=== PATIENT | male | born 1970 ===

== ENCOUNTER 2016-12-27 15:48 | Inpatient (IN) | payer BC, OTHER ==
[2016-12-27] MEDS ORDERED: Sodium Chloride 0.9% 1,000 ML IV STA (16:23)
--- NOTE | 2016-12-27 16:27 | ED PDOC ---
HPI: Abdomen Time Seen by Provider: 12/27/16 16:15 Chief Complaint (Nursing): Abdominal Pain Chief Complaint (Provider): Abd pain History Per: Patient History/Exam Limitations: no limitations Onset/Duration Of Symptoms: Days (2) Outside of [place] travel?: No Current Symptoms Are (Timing): Gone Now Additional Complaint(s): Pt. with epigastric and upper abd pain going to back. Ongoing for 2 days. No pain currently. Had same long time ago in [place] and was told it was liver and possible stones in gall bladder. No diarrhea, vomit, weakness, fever , chills, headches, dysuria. Has nasuea. Past Medical History Reviewed: Nursing Documentation, Vital Signs Vital Signs: Last Vital Signs Temp 97.7 F 12/27/16 15:58 Pulse 81 12/27/16 15:58 Resp 18 12/27/16 15:58 BP 118/70 12/27/16 15:58 Pulse Ox 100 12/27/16 16:28 - Medical History PMH: Gall Bladder Disease, HTN (?) - Surgical History Surgical History: No Surg Hx - Family History Family History: States: Unknown Family Hx - Living Arrangements Living Arrangements: With Family - Social History Alcohol: None Drugs: Denies - Allergies Allergies/Adverse Reactions: Allergies Allergy/AdvReac Type Severity Reaction Status Date / Time No Known Allergies Allergy Verified 12/27/16 15:57 Review of Systems ROS Statement: Except As Marked, All Systems Reviewed And Found Negative Gastrointestinal: Positive for: Nausea, Abdominal Pain Physical Exam - Reviewed Nursing Documentation Reviewed: Yes Vital Signs Reviewed: Yes - Physical Exam Appears: Positive for: Non-toxic, No Acute Distress Head Exam: Positive for: ATRAUMATIC, NORMAL INSPECTION, NORMOCEPHALIC Skin: Positive for: Normal Color, Warm, DRY Eye Exam: Positive for: EOMI, Normal appearance, PERRL ENT: Positive for: Normal ENT Inspection Neck: Positive for: Normal, Painless ROM Cardiovascular/Chest: Positive for: Regular Rate, Rhythm Respiratory: Positive for: CNT, Normal Breath Sounds Gastrointestinal/Abdominal: Positive for: Bowel Sounds, Soft. Negative for: Tenderness, Distended, Guarding Back: Positive for: Normal Inspection. Negative for: L CVA Tenderness, R CVA Tenderness Extremity: Positive for: Normal ROM. Negative for: Tenderness, Pedal Edema Neurologic/Psych: Positive for: Alert, Oriented - Laboratory Results Result Diagrams: 12/27/16 16:54 12/27/16 16:54 Interpretation Of Abn Labs: ast and alt elevation; tbili 1.8 - ECG O2 Sat by Pulse Oximetry: 100 Pulse Ox Interpretation: Normal - CT Scan/US US Other Rad Studies (CT/US): Read By Radiologist Other Rad Interpretation: gallstones; wall edema - Progress ED Course And Treament: 1744: Stable. AAOx3. Pain free. Spoke with hospitalist who will admit. Spoke with Surgery who will consult. GI paged. will start antibiotics. 1754: Spoke with Dr. Styles. Will see pt. on consult. No additional tx. Disposition - Clinical Impression Clinical Impression: Cholecystitis - Patient ED Disposition Is Patient to be Admitted: Yes Counseled Patient/Family Regarding: Studies Performed, Diagnosis - Disposition Disposition Time: 17:48 Condition: FAIR - Pt Status Changed To: Hospital Disposition Of: Inpatient - Admit Certification Admit to Inpatient:: After my assessment, the patient will require hospitalization for at least two midnights. This is because of the severity of symptoms shown, intensity of services needed, and/or the medical risk in this patient being treated as an outpatient. - POA Present On Arrival: None
[2016-12-27 16:57] LABS: BASO % 0.4 % (0.0-2.0); EOS # 0.2 K/uL (0.0-0.7); EOS % 2.2 % (0.0-4.0); MEAN CELL VOLUME 88.6 fl (80.0-94.0); MEAN CORPUSCULAR HEMOGLOBIN 29.6 pg (27.0-31.0); MEAN CORPUSCULAR HGB CONC 33.4 g/dL (33.0-37.0); MEAN PLATELET VOLUME 7.7 fl (7.2-11.7); MONO # 0.6 K/uL (0.0-0.8); MONO % 5.7 % (0.0-10.0); NEUT # 7.3 K/uL (1.8-7.0); NEUT % 71.7 % (50.0-75.0); NRBC % 0.1 % (0.0-0.0); RED CELL DISTRIBUTION WIDTH 13.4 % (11.5-14.5); WHITE BLOOD COUNT 10.2 K/uL (4.8-10.8)
[2016-12-27 17:09] LABS: ALB/GLOB RATIO 1.5 (1.0-2.1); ALKALINE PHOSPHATASE 147 U/L (38-126); ALT/SGPT 350 U/L (21-72); AST/SGOT 90 U/L (17-59); BILIRUBIN,TOTAL 1.8 mg/dl (0.2-1.3); BLOOD UREA NITROGEN 13 mg/dl (9-20); CALCIUM 9.3 mg/dL (8.4-10.2); CARBON DIOXIDE 26 mmol/L (22-30); CHLORIDE 102 mmol/L (98-107); GFR AFRICAN-AMERICAN > 60; GLUCOSE,RANDOM 94 mg/dL (75-110); LIPASE 76 U/L (23-300); POTASSIUM 3.9 MMOL/L (3.6-5.0); SODIUM 141 mmol/l (132-148); TOTAL PROTEIN 7.4 G/DL (6.3-8.2)
[2016-12-27 17:21] LABS: PARTIAL THROMBOPLASTIN TIME 37.6 Seconds (25.6-37.1)
--- NOTE | 2016-12-27 17:25 | US ---
HISTORY: abd pain COMPARISON: None available. TECHNIQUE: Sonographic evaluation of the right upper quadrant of the abdomen. FINDINGS: LIVER: Measures 15.3 cm in length and appears unremarkable. No focal hepatic mass identified. The main portal vein appears patent with normal directional flow. No intrahepatic bile duct dilatation. GALLBLADDER: Gallstones. Mild gallbladder wall thickening/ pericholecystic edema measuring approximately 4 mm in diameter. Negative sonographic Wallis's sign as assessed by the ground water technician. COMMON BILE DUCT: Measures 5 mm. PANCREAS: Not well-visualized. RIGHT KIDNEY: Measures 11.5 x 4.1 x 5.5 cm. No obstructing calculus or hydronephrosis identified. AORTA: Limited visualization appears grossly unremarkable. IVC: Limited visualization appears grossly unremarkable. OTHER FINDINGS: None . IMPRESSION: Cholelithiasis. Gallbladder wall thickening/edema measuring approximately 4 mm in diameter. Negative sonographic Wallis's sign as assessed by the ground water technician. Correlate clinically.
[2016-12-27] MEDS ORDERED: Piperacillin/Tazobact 3.375 GM in Sodium Chloride 0.9% 100 ML IV STA (17:47)
--- NOTE | 2016-12-27 18:46 | CP.PCM.HP ---
History of Present Illness - History of Present Illness History of Present Illness: CC: abd pain HPI: this is a 46-year-old male with past medical history of hypertension and GERD, presents with a 2 day history of ongoing moderate to severe sharp and cramping waxing and waning right upper quadrant and midepigastric pain and bandlike distribution radiating to the back. This is associated with some nausea and very mild scleral icterus which prompted the patient to come to the emergency room today. In the emergency room patient temperature was 98 blood pressure 122/78 heart rate 84 respiratory 14 O2 sat 100% on room air. Labs were significant for total bili 1.8, AST 19 ALT 350 alkaline phosphatase 147, PT 13.9 PTT 37.6. Abdominal ultrasound showed mild gallbladder wall thickening with her cholecystic edema with negative ultrasound sonographic Wallis sign. Common bile duct measured 5 mm. GI and surgery were both consulted in the emergency room. Patient to remain nothing by mouth on D5 half-normal saline at 125 miles an hour. However we will continue by mouth medications until after midnight in case of any procedures. Zofran when necessary nausea. He was also given 1 dose of Zosyn in the emergency room. Patient is afebrile with no leukocytosis. Hemodynamically stable, no acute distress. ROS: Per HPI, all other systems reviewed and neg PMH: hypertension, GERD PSH: denies FH: HTN, DM, CAD, renal failure SH: denies tobacco, ETOH, IVDU NKDA Vitals Reviewed GEN: WDWN, ALERT, COOPERATIVE HEENT: NCAT, PERRL, EOMI HEART: RRR, +S1S2, NO MRG LUNG: CTAB, NO WRR ABD: SOFT, TENDER MIDEPIGASTRIUM/RUQ, ND, NO HSM, NO MASSES EXT: NORMAL PEDAL PULSES, GOOD CAPILLARY REFILL NEURO: AAOX3, STRENGTH EQUAL BILATERAL UPPER AND LOWER EXTREMITIES SKIN: WARM, DRY PSYCH: NORMAL MOOD, NORMAL AFFECT LABS 12/27/16 12/27/16 12/27/16 16:54 16:54 16:54 WBC 10.2 RBC 5.31 Hgb 15.7 Hct 47.0 MCV 88.6 MCH 29.6 MCHC 33.4 RDW 13.4 Plt Count 224 MPV 7.7 Neut % (Auto) 71.7 Lymph % (Auto) 20.0 [place] % (Auto) 5.7 Eos % (Auto) 2.2 Baso % (Auto) 0.4 Neut # 7.3 H Lymph # 2.0 [place] # 0.6 Eos # 0.2 Baso # 0.0 PT 13.9 H INR 1.2 APTT 37.6 H Sodium 141 Potassium 3.9 Chloride 102 Carbon Dioxide 26 Anion Gap 18 BUN 13 Creatinine 0.8 Est GFR ( Amer) > 60 Est GFR (Non-Af Amer) > 60 Random Glucose 94 Calcium 9.3 Total Bilirubin 1.8 H AST 90 H ALT 350 H Alkaline Phosphatase 147 H Total Protein 7.4 Albumin 4.4 Globulin 3.0 Albumin/Globulin Ratio 1.5 Lipase 76 IMAGING STUDIES Abdominal US: mild GB wall thickening with pericholecystic fluid. Neg US Wallis' s. CBD 5mm. MEDICATIONS Ondansetron [Zofran Inj] 4 mg IVP Q6 PRN Potassium Ch 20mEq in D5-1/2NS [Potassium Chl 20 mEq in D5-1/2NS] 1,000 ml IV 125 mls/hr Sodium Chloride 0.9% 1,000 ml IV 100 mls/hr Famotidine [Pepcid] 40 mg PO HS Piperacillin/Tazobact [Zosyn] 3.375 gm Sodium Chloride 0.9% 100 ml IVPB Q6 Clinical Indication: Empiric Therapy Piperacillin-Tazobactam Indication: Intra-Abdominal Infx Lisinopril [Zestril] 5 mg PO DAILY Pantoprazole [Protonix EC Tab] 40 mg PO DAILY ASSESSMENT AND PLAN 46-year-old male with past medical history of hypertension and GERD, presents with a 2 day history of ongoing moderate to severe sharp and cramping waxing and waning right upper quadrant and midepigastric pain and bandlike distribution radiating to the back. This is associated with some nausea and very mild scleral icterus which prompted the patient to come to the emergency room today. In the emergency room patient temperature was 98 blood pressure 122 /78 heart rate 84 respiratory 14 O2 sat 100% on room air. Labs were significant for total bili 1.8, AST 19 ALT 350 alkaline phosphatase 147, PT 13.9 PTT 37.6. Abdominal ultrasound showed mild gallbladder wall thickening with her cholecystic edema with negative ultrasound sonographic Wallis sign. Common bile duct measured 5 mm. GI and surgery were both consulted in the emergency room. Patient to remain nothing by mouth on D5 half-normal saline at 125 miles an hour. However we will continue by mouth medications until after midnight in case of any procedures. Zofran when necessary nausea. He was also given 1 dose of Zosyn in the emergency room. Patient is afebrile with no leukocytosis. Hemodynamically stable, no acute distress. ABDOMINAL PAIN presented with moderate to severe midepigastric / RUQ pain radiating to back. mild scleral icterus around the bottom of eye. AFEBRILE, NO WBC total bili 1.8, AST 19 ALT 350 alkaline phosphatase 147. lipase negative. Abdominal ultrasound showed mild gallbladder wall thickening with her cholecystic edema with negative ultrasound sonographic Wallis sign. Common bile duct measured 5 mm. GI and surgery were both consulted in the emergency room. HD stable GERD continue PPI and H2 blockade HTN continue Lisinopril 5 mg po daily VTE ppx patient ambultes Present on Admission - Present on Admission Any Indicators Present on Admission: No Past Patient History - Past Social History Alcohol: None Drugs: Denies - CARDIAC Hx Cardiac Disorders: No - PULMONARY Hx Respiratory Disorders: No - NEUROLOGICAL Hx Neurological Disorder: No - HEENT Hx HEENT Problems: No - RENAL Hx Chronic Kidney Disease: No - ENDOCRINE/METABOLIC Hx Endocrine Disorders: No - HEMATOLOGICAL/ONCOLOGICAL Hx Blood Disorders: No - INTEGUMENTARY Hx Dermatological Problems: No - MUSCULOSKELETAL/RHEUMATOLOGICAL Hx Musculoskeletal Disorders: No - GASTROINTESTINAL Hx Gall Bladder Disease: Yes - GENITOURINARY/GYNECOLOGICAL Hx Genitourinary Disorders: No - PSYCHIATRIC Hx Psychophysiologic Disorder: No - SURGICAL HISTORY Hx Surgeries: No - ANESTHESIA Hx Anesthesia: No Meds Allergies/Adverse Reactions: Allergies Allergy/AdvReac Type Severity Reaction Status Date / Time No Known Allergies Allergy Verified 12/27/16 15:57 Results - Vital Signs Recent Vital Signs: Last Vital Signs Temp 98.0 F 12/27/16 18:00 Pulse 84 12/27/16 18:00 Resp 14 12/27/16 18:00 BP 122/78 12/27/16 18:00 Pulse Ox 100 12/27/16 18:00 - Labs Result Diagrams: 12/27/16 16:54 12/27/16 16:54 Labs: Laboratory Results - last 24 hr 12/27/16 12/27/16 12/27/16 16:54 16:54 16:54 WBC 10.2 RBC 5.31 Hgb 15.7 Hct 47.0 MCV 88.6 MCH 29.6 MCHC 33.4 RDW 13.4 Plt Count 224 MPV 7.7 Neut % (Auto) 71.7 Lymph % (Auto) 20.0 [place] % (Auto) 5.7 Eos % (Auto) 2.2 Baso % (Auto) 0.4 Neut # 7.3 H Lymph # 2.0 [place] # 0.6 Eos # 0.2 Baso # 0.0 PT 13.9 H INR 1.2 APTT 37.6 H Sodium 141 Potassium 3.9 Chloride 102 Carbon Dioxide 26 Anion Gap 18 BUN 13 Creatinine 0.8 Est GFR ( Amer) > 60 Est GFR (Non-Af Amer) > 60 Random Glucose 94 Calcium 9.3 Total Bilirubin 1.8 H AST 90 H ALT 350 H Alkaline Phosphatase 147 H Total Protein 7.4 Albumin 4.4 Globulin 3.0 Albumin/Globulin Ratio 1.5 Lipase 76
[2016-12-27] MEDS ORDERED: HYDROmorphone 0.5 mg/0.5 ml ISec IVP PRN ×2 (18:56)
[2016-12-27] MEDS ORDERED: Sodium Chloride 0.9% 1,000 ML IV SCH (19:00)
--- NOTE | 2016-12-27 20:00 | CP.PCM.CON ---
History of Present Illness - History of Present Illness History of Present Illness: General Surgery Dr. Arambula 46 y/o M w/ PMHx of cholelithiasis and HTN presents to the ED c/o RUQ pain x2days. Pt is Frisian-speaking. Family at bedside states pt's pain began 2 days ago after eating a large slice of pizza. Pt admits to similar pain 1 yr ago when pt was Dx w/ cholelithaisis. Pain is constant w/ radiation into back and R shoulder. Pain is less intense today compared to the last 2 days; however, family reports that pt's eyes and narcisa-orbital skin appeared yellow today. Pt denies F/C, N/V, D/C. US performed in ED revealed cholelithiasis w/ GB wall thickening and borderline CBD dilation. PMHx: see above Meds: reviewed in chart NKDA PSHx: denies SHx: denies tobacco, drug use. Hx of EtOH use FHx: non-contributory Review of Systems - Review of Systems All systems: reviewed and no additional remarkable complaints except (see HPI) Past Patient History - Past Social History Smoking Status: Never Smoked - CARDIAC Hx Cardiac Disorders: No - PULMONARY Hx Respiratory Disorders: No - NEUROLOGICAL Hx Neurological Disorder: No - HEENT Hx HEENT Problems: No - RENAL Hx Chronic Kidney Disease: No - ENDOCRINE/METABOLIC Hx Endocrine Disorders: No - HEMATOLOGICAL/ONCOLOGICAL Hx Blood Disorders: No - INTEGUMENTARY Hx Dermatological Problems: No - MUSCULOSKELETAL/RHEUMATOLOGICAL Hx Falls: No - GASTROINTESTINAL Hx Gall Bladder Disease: Yes - GENITOURINARY/GYNECOLOGICAL Hx Genitourinary Disorders: No - PSYCHIATRIC Hx Substance Use: No - SURGICAL HISTORY Hx Surgeries: No - ANESTHESIA Hx Anesthesia: No Meds Allergies/Adverse Reactions: Allergies Allergy/AdvReac Type Severity Reaction Status Date / Time No Known Allergies Allergy Verified 12/27/16 15:57 - Medications Medications: Current Medications Famotidine (Pepcid) 40 mg PO HS [facility] Hydromorphone HCl (Dilaudid) 0.5 mg IVP Q3 PRN PRN Reason: Pain, moderate (4-7) Stop: 12/29/16 18:56 Hydromorphone HCl (Dilaudid) 1 mg IVP Q3 PRN PRN Reason: Pain, severe (8-10) Potassium Chloride/Dextrose/Sod Cl (Potassium Chl 20 Meq In D5-1/2ns) 1,000 mls @ 125 mls/hr IV .Q8H [facility] Stop: 12/28/16 18:38 Piperacillin Sod/Tazobactam (Sod 3.375 gm/ Sodium Chloride) 100 mls @ 100 mls/ hr IVPB Q6 [facility] PRN Reason: Protocol Lisinopril (Zestril) 5 mg PO DAILY [facility] Ondansetron HCl (Zofran Inj) 4 mg IVP Q6 PRN PRN Reason: Nausea/Vomiting Pantoprazole Sodium (Protonix Ec Tab) 40 mg PO DAILY [facility] Physical Exam - Constitutional Appears: Non-toxic, No Acute Distress - Head Exam Head Exam: NORMAL INSPECTION - Eye Exam Eye Exam: Normal appearance, Scleral icterus (minimal) - ENT Exam ENT Exam: Mucous Membranes Moist - Respiratory Exam Respiratory Exam: NORMAL BREATHING PATTERN. absent: Accessory Muscle Use, Respiratory Distress - Cardiovascular Exam Cardiovascular Exam: REGULAR RHYTHM. absent: Bradycardia, Tachycardia - GI/Abdominal Exam GI & Abdominal Exam: Soft. absent: Distended, Firm, Guarding, Rebound, Rigid, Tenderness - Expanded GI/Abdominal Exam Expanded Expanded GI & Abdominal Exam: absent: Wallis's Sign - Extremities Exam Extremities exam: Positive for: normal inspection - Neurological Exam Neurological exam: Alert, Oriented x3 - Psychiatric Exam Psychiatric exam: Normal Affect, Normal Mood - Skin Skin Exam: Dry, Intact, Warm Results - Vital Signs Recent Vital Signs: Last Vital Signs Temp 98.0 F 12/27/16 18:00 Pulse 84 12/27/16 18:00 Resp 14 12/27/16 18:00 BP 122/78 12/27/16 18:00 Pulse Ox 100 12/27/16 18:00 - Labs Result Diagrams: 12/27/16 16:54 12/27/16 16:54 Labs: Laboratory Results - last 24 hr 12/27/16 12/27/16 12/27/16 16:54 16:54 16:54 WBC 10.2 RBC 5.31 Hgb 15.7 Hct 47.0 MCV 88.6 MCH 29.6 MCHC 33.4 RDW 13.4 Plt Count 224 MPV 7.7 Neut % (Auto) 71.7 Lymph % (Auto) 20.0 [place] % (Auto) 5.7 Eos % (Auto) 2.2 Baso % (Auto) 0.4 Neut # 7.3 H Lymph # 2.0 [place] # 0.6 Eos # 0.2 Baso # 0.0 PT 13.9 H INR 1.2 APTT 37.6 H Sodium 141 Potassium 3.9 Chloride 102 Carbon Dioxide 26 Anion Gap 18 BUN 13 Creatinine 0.8 Est GFR ( Amer) > 60 Est GFR (Non-Af Amer) > 60 Random Glucose 94 Calcium 9.3 Total Bilirubin 1.8 H AST 90 H ALT 350 H Alkaline Phosphatase 147 H Total Protein 7.4 Albumin 4.4 Globulin 3.0 Albumin/Globulin Ratio 1.5 Lipase 76 - Imaging and Cardiology US - abdomen Status: Image reviewed by me, Report reviewed by me MRI - abdomen Status: Pending Assessment & Plan - Assessment and Plan (Free Text) Assessment: 46 y/o M w/ RUQ pain likely 2/2 acute cholecystitis vs symptomatic cholelithaisis - NPO, IVF - IV Abx - trend LFTs/T. Bili - pain management - f/u MRCP if T. Bilii still elevated tomorrow - Possible OR tomorrow pending AM labs - GI PPx - hold anti-coagulation for possible surgery Pt discussed w/ Dr. Ralf Davis DO PGY2
[2016-12-27 20:22] VITALS: BMI 29.2
[2016-12-27] MEDS: Potassium Ch 20mEq in D5-1/2NS 1,000 ML IV SCH (20:31)
[2016-12-27] MEDS ORDERED: Piperacillin/Tazobact 3.375 GM in Sodium Chloride 0.9% 100 ML IVPB SCH (22:00)
[2016-12-27] MEDS: Piperacillin/Tazobact 3.375 GM in Sodium Chloride 0.9% 100 ML IVPB SCH (23:29)
[2016-12-28] MEDS: Potassium Ch 20mEq in D5-1/2NS 1,000 ML IV SCH (05:36)
[2016-12-28] MEDS: Piperacillin/Tazobact 3.375 GM in Sodium Chloride 0.9% 100 ML IVPB SCH ×3 (05:38→23:35)
[2016-12-28 06:09] LABS: HEMATOCRIT 45.1 % (35.0-51.0); MEAN CELL VOLUME 89.1 fl (80.0-94.0); MEAN CORPUSCULAR HGB CONC 33.7 g/dL (33.0-37.0); RED CELL DISTRIBUTION WIDTH 13.1 % (11.5-14.5); WHITE BLOOD COUNT 6.5 K/uL (4.8-10.8)
[2016-12-28 06:56] LABS: ALB/GLOB RATIO 1.4 (1.0-2.1); ALKALINE PHOSPHATASE 106 U/L (38-126); ALT/SGPT 237 U/L (21-72); AST/SGOT 50 U/L (17-59); BILIRUBIN,TOTAL 1.5 mg/dl (0.2-1.3); BLOOD UREA NITROGEN 11 mg/dl (9-20); CARBON DIOXIDE 26 mmol/L (22-30); CHLORIDE 106 mmol/L (98-107); GFR AFRICAN-AMERICAN > 60; GLUCOSE,RANDOM 111 mg/dL (75-110); POTASSIUM 3.8 MMOL/L (3.6-5.0); SODIUM 141 mmol/l (132-148); TOTAL PROTEIN 6.2 G/DL (6.3-8.2)
[2016-12-28] MEDS: Pantoprazole 40 mg EC Tab PO SCH (08:16)
[2016-12-28] MEDS ORDERED: Bupivacaine 0.5% Inj(30mL) ONE (08:50)
[2016-12-28] MEDS ORDERED: Iohexol 300 100 ML IJ ONE (08:51)
[2016-12-28] MEDS ORDERED: ceFAZolin IV 1 gm in Dextrose 0 GM/0 ML BAG IVPB ONE (08:51)
[2016-12-28] MEDS ORDERED: Iohexol 300 10 ML ONE (08:52)
--- NOTE | 2016-12-28 09:40 | CP.PCM.CON ---
History of Present Illness - History of Present Illness History of Present Illness: 46 yo male c/o right upper quadrant for 2 days When initially admitted had elevated LFTs. This morning feels better and denies pain. Had 2-3 similar episodes in the past. Review of Systems - Constitutional Constitutional: absent: Chills - EENT Eyes: absent: Change in Vision Ears: absent: Ear Pain Nose/Mouth/Throat: absent: Epistaxis - Cardiovascular Cardiovascular: absent: Chest Pain - Respiratory Respiratory: absent: Cough - Gastrointestinal Gastrointestinal: As Per HPI - Genitourinary Genitourinary: absent: Difficulty Urinating Past Patient History - Past Medical History & Family History Past Medical History?: Yes - Past Social History Smoking Status: Never Smoked - CARDIAC Hx Cardiac Disorders: No - PULMONARY Hx Respiratory Disorders: No - NEUROLOGICAL Hx Neurological Disorder: No - HEENT Hx HEENT Problems: No - RENAL Hx Chronic Kidney Disease: No - ENDOCRINE/METABOLIC Hx Endocrine Disorders: No - HEMATOLOGICAL/ONCOLOGICAL Hx Blood Disorders: No - INTEGUMENTARY Hx Dermatological Problems: No - MUSCULOSKELETAL/RHEUMATOLOGICAL Hx Falls: No - GASTROINTESTINAL Hx Gall Bladder Disease: Yes - GENITOURINARY/GYNECOLOGICAL Hx Genitourinary Disorders: No - PSYCHIATRIC Hx Substance Use: No - SURGICAL HISTORY Hx Surgeries: No - ANESTHESIA Hx Anesthesia: No Meds Allergies/Adverse Reactions: Allergies Allergy/AdvReac Type Severity Reaction Status Date / Time No Known Allergies Allergy Verified 12/27/16 15:57 - Medications Medications: Current Medications Famotidine (Pepcid) 40 mg PO [facility] Last Admin: 12/27/16 21:21 Dose: 40 mg Hydromorphone HCl (Dilaudid) 0.5 mg IVP Q3 PRN PRN Reason: Pain, moderate (4-7) Stop: 12/29/16 18:56 Hydromorphone HCl (Dilaudid) 1 mg IVP Q3 PRN PRN Reason: Pain, severe (8-10) Potassium Chloride/Dextrose/Sod Cl (Potassium Chl 20 Meq In D5-1/2ns) 1,000 mls @ 125 mls/hr IV .Q8H [facility] Stop: 12/28/16 18:38 Last Admin: 12/28/16 05:36 Dose: 125 mls/hr Piperacillin Sod/Tazobactam (Sod 3.375 gm/ Sodium Chloride) 100 mls @ 100 mls/ hr IVPB 0000,0600,1200,1800 [facility] PRN Reason: Protocol Last Admin: 12/28/16 05:38 Dose: 100 mls/hr Lisinopril (Zestril) 5 mg PO DAILY [facility] Last Admin: 12/28/16 08:16 Dose: Not Given Ondansetron HCl (Zofran Inj) 4 mg IVP Q6 PRN PRN Reason: Nausea/Vomiting Pantoprazole Sodium (Protonix Ec Tab) 40 mg PO DAILY [facility] Last Admin: 12/28/16 08:16 Dose: Not Given Physical Exam - Constitutional Appears: Well - Head Exam Head Exam: ATRAUMATIC - Eye Exam Eye Exam: EOMI Pupil Exam: PERRL - ENT Exam ENT Exam: Normal Exam - Neck Exam Neck exam: Positive for: Normal Inspection - Respiratory Exam Respiratory Exam: NORMAL BREATHING PATTERN - Cardiovascular Exam Cardiovascular Exam: REGULAR RHYTHM, +S1, +S2 - GI/Abdominal Exam GI & Abdominal Exam: Normal Bowel Sounds, Soft. absent: Tenderness Results - Vital Signs Recent Vital Signs: Last Vital Signs Temp 98.4 F 12/28/16 08:15 Pulse 75 12/28/16 08:16 Resp 20 12/28/16 08:15 BP 123/71 12/28/16 08:16 Pulse Ox 99 12/28/16 08:15 - Labs Result Diagrams: 12/28/16 05:30 12/28/16 05:30 Labs: Laboratory Results - last 24 hr 12/27/16 12/27/16 12/27/16 16:54 16:54 16:54 WBC 10.2 RBC 5.31 Hgb 15.7 Hct 47.0 MCV 88.6 MCH 29.6 MCHC 33.4 RDW 13.4 Plt Count 224 MPV 7.7 Neut % (Auto) 71.7 Lymph % (Auto) 20.0 [place] % (Auto) 5.7 Eos % (Auto) 2.2 Baso % (Auto) 0.4 Neut # 7.3 H Lymph # 2.0 [place] # 0.6 Eos # 0.2 Baso # 0.0 PT 13.9 H INR 1.2 APTT 37.6 H Sodium 141 Potassium 3.9 Chloride 102 Carbon Dioxide 26 Anion Gap 18 BUN 13 Creatinine 0.8 Est GFR ( Amer) > 60 Est GFR (Non-Af Amer) > 60 Random Glucose 94 Calcium 9.3 Total Bilirubin 1.8 H AST 90 H ALT 350 H Alkaline Phosphatase 147 H Total Protein 7.4 Albumin 4.4 Globulin 3.0 Albumin/Globulin Ratio 1.5 Lipase 76 12/28/16 12/28/16 05:30 05:30 WBC 6.5 RBC 5.06 Hgb 15.2 Hct 45.1 MCV 89.1 MCH 30.0 MCHC 33.7 RDW 13.1 Plt Count 203 MPV Neut % (Auto) Lymph % (Auto) [place] % (Auto) Eos % (Auto) Baso % (Auto) Neut # Lymph # [place] # Eos # Baso # PT INR APTT Sodium 141 Potassium 3.8 Chloride 106 Carbon Dioxide 26 Anion Gap 12 BUN 11 Creatinine 0.8 Est GFR ( Amer) > 60 Est GFR (Non-Af Amer) > 60 Random Glucose 111 H Calcium 9.0 Total Bilirubin 1.5 H AST 50 ALT 237 H D Alkaline Phosphatase 106 Total Protein 6.2 L Albumin 3.7 Globulin 2.6 Albumin/Globulin Ratio 1.4 Lipase Assessment & Plan (1) Cholecystitis Assessment and Plan: Admitted with cholecystitis and elevated LFTs. Clinically doing better and LFTs still high but improving. For surgery today with intraoperative cholangoiogram. Will follow Status: Acute
[2016-12-28] MEDS ORDERED: Propofol 10 mg/ml Inj (20 ML) ONE (09:46)
[2016-12-28] MEDS ORDERED: Lidocaine 4% (Laryng-O-Jet) Kit MM ONE (09:46)
[2016-12-28] MEDS ORDERED: Midazolam 2 MG/2 ML VIAL ONE (09:46)
[2016-12-28] MEDS ORDERED: Rocuronium 10 mg/ml (5 ml) ONE (09:46)
[2016-12-28] MEDS ORDERED: Succinylcholine 200 mg/10 ml Inj IV ONE (09:46)
[2016-12-28] MEDS ORDERED: ePHEDrine 50 mg/ml Inj ONE (09:46)
[2016-12-28] MEDS ORDERED: Lactated Ringer's 1,000 ML IV ONE ×2 (09:50→10:52)
[2016-12-28] MEDS ORDERED: Sevoflurane - Inhalation Anesthetic Liq (250 ml) ONE (10:03)
[2016-12-28] MEDS ORDERED: Bupivacaine 0.5% 50 ML IJ ONE ×3 (10:10→11:45)
[2016-12-28] MEDS ORDERED: Iohexol 300 10 ML IJ ONE ×2 (10:29)
[2016-12-28] MEDS ORDERED: Lactated Ringer's 500 ML IV ONE (10:52)
[2016-12-28] MEDS ORDERED: Neostigmine Methylsulfate 3mg/3ml Syringe IV ONE (10:54)
[2016-12-28] MEDS ORDERED: Dexamethasone 4 mg/1 ml IVP PRN (12:02)
--- NOTE | 2016-12-28 12:04 | PCM.SURG1 ---
Surgeon's Initial Post Op Note - Surgeon's Notes Surgeon: Dr. Arambula Jig Worker: Dr. Gamez PGY3, PGY1 Pre-Operative Diagnosis: Acute Cholecystitis Operative Findings: inflammed and distended gallbladder. multiple gallstone stones Post-Operative Diagnosis: as above Operation Performed: Laparoscopic cholecystectomy w/ intraoperative cholangiogram Specimen/Specimens Removed: gallbladder Estimated Blood Loss: EBL {In ML}: 50 Blood Products Given: N/A Drains Used: No Drains Post-Op Condition: Good Date of Surgery/Procedure: 12/28/16 Time of Surgery/Procedure: 10:30
--- NOTE | 2016-12-28 12:14 | CP.PCM.PN ---
Subjective - Date & Time of Evaluation Date of Evaluation: 12/28/16 Time of Evaluation: 12:11 - Subjective Subjective: Patient is status post Laparoscopic cholecystectomy w/ intraoperative cholangiogram. Hemodynamically stable, no acute distress, no complaints at this time. Objective - Vital Signs/Intake and Output Vital Signs (last 24 hours): Temp Pulse Resp BP Pulse Ox 98.4 F 75 20 123/71 99 12/28/16 08:15 12/28/16 08:16 12/28/16 08:15 12/28/16 08:16 12/28/16 08:15 Physical exam: Constitutional- cooperative, awake, alert. Head- NCAT, PERRL Eye- PERRL, normal accommodation ENT- normal exam, MMM. Neck- normal inspection, supple, no JVD Respiratory- CTAB, no wheezes rales rhonchi Cardiovascular- RRR, +S1, +S2 no MRG GI/Abdominal- normal bowel sounds, soft, no mass, no hsm, dressings clean dry and intact Skin- warm, dry, dressings clean dry and intact Extremities Exam- normal capillary refill, normal inspection Neurological Exam- alert, stable gait Psych- normal mood, normal affect Intake and Output: 12/28/16 12/28/16 06:59 18:59 Intake Total 1200 Balance 1200 - Medications Medications: Current Medications Dexamethasone (Decadron Inj) 4 mg IVP ONCE PRN PRN Reason: Nausea/Vomiting Stop: 12/28/16 14:02 Famotidine (Pepcid) 40 mg PO [facility] Last Admin: 12/27/16 21:21 Dose: 40 mg Hydromorphone HCl (Dilaudid) 0.5 mg IVP Q3 PRN PRN Reason: Pain, moderate (4-7) Stop: 12/29/16 18:56 Hydromorphone HCl (Dilaudid) 1 mg IVP Q3 PRN PRN Reason: Pain, severe (8-10) Hydromorphone HCl (Dilaudid) 0.5 mg IVP Q5M PRN PRN Reason: Pain, severe (8-10) Stop: 12/28/16 14:02 Potassium Chloride/Dextrose/Sod Cl (Potassium Chl 20 Meq In D5-1/2ns) 1,000 mls @ 125 mls/hr IV .Q8H [facility] Stop: 12/28/16 18:38 Last Admin: 12/28/16 05:36 Dose: 125 mls/hr Piperacillin Sod/Tazobactam (Sod 3.375 gm/ Sodium Chloride) 100 mls @ 100 mls/ hr IVPB 0000,0600,1200,1800 [facility] PRN Reason: Protocol Last Admin: 12/28/16 05:38 Dose: 100 mls/hr Lisinopril (Zestril) 5 mg PO DAILY [facility] Last Admin: 12/28/16 08:16 Dose: Not Given Metoclopramide HCl (Reglan) 10 mg IVP ONCE PRN PRN Reason: Nausea/Vomiting Stop: 12/28/16 14:02 Ondansetron HCl (Zofran Inj) 4 mg IVP Q6 PRN PRN Reason: Nausea/Vomiting Pantoprazole Sodium (Protonix Ec Tab) 40 mg PO DAILY [facility] Last Admin: 12/28/16 08:16 Dose: Not Given - Labs Labs: 12/28/16 05:30 12/28/16 05:30 PT 13.9 Seconds (9.8-13.1) H 12/27/16 16:54 INR 1.2 (0.9-1.2) 12/27/16 16:54 APTT 37.6 Seconds (25.6-37.1) H 12/27/16 16:54 Assessment and Plan - Assessment and Plan (Free Text) Plan: 46-year-old male with past medical history of hypertension and GERD, presents with a 2 day history of ongoing moderate to severe sharp and cramping waxing and waning right upper quadrant and midepigastric pain and bandlike distribution radiating to the back. This is associated with some nausea and very mild scleral icterus which prompted the patient to come to the emergency room today. In the emergency room patient temperature was 98 blood pressure 122 /78 heart rate 84 respiratory 14 O2 sat 100% on room air. Labs were significant for total bili 1.8, AST 19 ALT 350 alkaline phosphatase 147, PT 13.9 PTT 37.6. Abdominal ultrasound showed mild gallbladder wall thickening with her cholecystic edema with negative ultrasound sonographic Wallis sign. Common bile duct measured 5 mm. GI and surgery were both consulted in the emergency room. Patient to remain nothing by mouth on D5 half-normal saline at 125 miles an hour. However we will continue by mouth medications until after midnight in case of any procedures. Zofran when necessary nausea. He was also given 1 dose of Zosyn in the emergency room. Patient is afebrile with no leukocytosis. Hemodynamically stable, no acute distress. ABDOMINAL PAIN presented with moderate to severe midepigastric / RUQ pain radiating to back. mild scleral icterus around the bottom of eye. AFEBRILE, NO WBC total bili 1.8, AST 19 ALT 350 alkaline phosphatase 147. lipase negative. On admission Abdominal ultrasound showed mild gallbladder wall thickening with her cholecystic edema with negative ultrasound sonographic Wallis sign. Common bile duct measured 5 mm. GI and surgery were both consulted in the emergency room. Patient is currently status post lap scopic cholecystectomy with Intra-Op cholangiogram. HD stable GERD continue PPI and H2 blockade HTN continue Lisinopril 5 mg po daily VTE ppx patient ambultes
[2016-12-28] MEDS: HYDROmorphone 0.5 mg/0.5 ml ISec IVP PRN ×2 (12:55→13:01)
[2016-12-28] MEDS: Lactated Ringer's 1,000 ML IV SCH (15:22)
--- NOTE | 2016-12-28 15:28 | RAD ---
PROCEDURE: Intraoperative cholangiogram HISTORY: CHOLANGIOGRAM COMPARISON: None TECHNIQUE: Standard protocol for this study/examination. FINDINGS: Total fluoroscopic time (continuous mode) utilized during the procedure: 2.7 seconds. Total exam DLP: (mGy): 0.32 IMPRESSION: Submitted images from the current procedure: 2.0. Less than 1 hr fluoroscopic time utilized during performance of the procedure.
[2016-12-29] MEDS: Lactated Ringer's 1,000 ML IV SCH ×2 (04:29→17:57)
[2016-12-29] MEDS: Piperacillin/Tazobact 3.375 GM in Sodium Chloride 0.9% 100 ML IVPB SCH ×3 (05:56→17:56)
[2016-12-29 07:22] LABS: BASO # 0.1 K/uL (0.0-0.2); BASO % 0.4 % (0.0-2.0); EOS % 0.1 % (0.0-4.0); HEMATOCRIT 36.8 % (35.0-51.0); LYMPH # 1.8 K/uL (1.0-4.3); MEAN CELL VOLUME 89.5 fl (80.0-94.0); MEAN CORPUSCULAR HEMOGLOBIN 29.3 pg (27.0-31.0); MEAN CORPUSCULAR HGB CONC 32.8 g/dL (33.0-37.0); MEAN PLATELET VOLUME 8.3 fl (7.2-11.7); MONO # 0.9 K/uL (0.0-0.8); MONO % 4.7 % (0.0-10.0); NEUT % 85.8 % (50.0-75.0); PLATELET COUNT 256 K/uL (130-400); RED CELL DISTRIBUTION WIDTH 13.6 % (11.5-14.5); WHITE BLOOD COUNT 19.8 K/uL (4.8-10.8)
[2016-12-29 07:36] LABS: ALB/GLOB RATIO 1.4 (1.0-2.1); ALKALINE PHOSPHATASE 91 U/L (38-126); ALT/SGPT 181 U/L (21-72); AST/SGOT 43 U/L (17-59); BILIRUBIN,TOTAL 1.5 mg/dl (0.2-1.3); BLOOD UREA NITROGEN 13 mg/dl (9-20); CALCIUM 8.7 mg/dL (8.4-10.2); CARBON DIOXIDE 24 mmol/L (22-30); CHLORIDE 103 mmol/L (98-107); GFR AFRICAN-AMERICAN > 60; GLUCOSE,RANDOM 162 mg/dL (75-110); POTASSIUM 4.3 MMOL/L (3.6-5.0); SODIUM 138 mmol/l (132-148); TOTAL PROTEIN 5.9 G/DL (6.3-8.2)
--- NOTE | 2016-12-29 07:57 | CP.PCM.PN ---
Subjective - Date & Time of Evaluation Date of Evaluation: 12/29/16 Time of Evaluation: 07:55 - Subjective Subjective: General Surgery: Dr Arambula Pt S&E. POD#1 s/p laparoscopic cholecystectomy. NAEO. Pt resting comfortably. Had CLD for dinner last night and tolerated well. Minimal pain which is well controlled. Has been OOB and ambulating, Objective - Vital Signs/Intake and Output Vital Signs (last 24 hours): Temp Pulse Resp BP Pulse Ox 99.4 F 108 H 18 123/75 96 12/29/16 05:41 12/29/16 05:41 12/29/16 05:41 12/29/16 05:41 12/29/16 05:41 - Medications Medications: Current Medications Acetaminophen (Tylenol 325mg Tab) 650 mg PO Q6 PRN PRN Reason: Fever >100.4 F Last Admin: 12/28/16 23:40 Dose: 650 mg Famotidine (Pepcid) 40 mg PO HS [facility] Last Admin: 12/28/16 21:45 Dose: 40 mg Hydromorphone HCl (Dilaudid) 0.5 mg IVP Q3 PRN PRN Reason: Pain, moderate (4-7) Stop: 12/29/16 18:56 Hydromorphone HCl (Dilaudid) 1 mg IVP Q3 PRN PRN Reason: Pain, severe (8-10) Piperacillin Sod/Tazobactam (Sod 3.375 gm/ Sodium Chloride) 100 mls @ 100 mls/ hr IVPB 0000,0600,1200,1800 [facility] PRN Reason: Protocol Last Admin: 12/29/16 05:56 Dose: 100 mls/hr Lactated Ringer's (Lactated Ringer's) 1,000 mls @ 90 mls/hr IV .Q11H7M [facility] Last Admin: 12/29/16 04:29 Dose: 90 mls/hr Lisinopril (Zestril) 5 mg PO DAILY [facility] Last Admin: 12/28/16 08:16 Dose: Not Given Ondansetron HCl (Zofran Inj) 4 mg IVP Q6 PRN PRN Reason: Nausea/Vomiting Last Admin: 12/28/16 17:16 Dose: 4 mg Pantoprazole Sodium (Protonix Ec Tab) 40 mg PO DAILY [facility] Last Admin: 12/28/16 08:16 Dose: Not Given - Labs Labs: 12/29/16 05:30 12/29/16 06:30 PT 13.9 Seconds (9.8-13.1) H 12/27/16 16:54 INR 1.2 (0.9-1.2) 12/27/16 16:54 APTT 37.6 Seconds (25.6-37.1) H 12/27/16 16:54 - Constitutional Appears: Non-toxic, No Acute Distress - ENT Exam ENT Exam: Mucous Membranes Moist - Respiratory Exam Respiratory Exam: NORMAL BREATHING PATTERN. absent: Accessory Muscle Use, Respiratory Distress - Cardiovascular Exam Cardiovascular Exam: REGULAR RHYTHM. absent: Tachycardia - GI/Abdominal Exam GI & Abdominal Exam: Soft, Tenderness (post-op and appropriate). absent: Distended, Firm, Guarding Assessment and Plan - Assessment and Plan (Free Text) Assessment: 46M POD#1 s/p lap cholecystectomy for cholecystitis Plan: Adv to regular diet cont abx given leukocytosis -abdominal exam benign, likely reactive to surgery pt should remain in house for abx until WBC is trending down will continue to monitor closely will d/w Dr Ralf Gamez, PGY3
[2016-12-29] MEDS: Pantoprazole 40 mg EC Tab PO SCH (08:32)
--- NOTE | 2016-12-29 10:55 | CP.PCM.PN ---
Subjective - Date & Time of Evaluation Date of Evaluation: 12/29/16 Time of Evaluation: 10:55 - Subjective Subjective: patient seen and examined at bedside status post laparoscopic cholecystectomy.patient is doing well, however he has leukocytosis about 19, 000. We will observe patient overnight and monitor. Hemodynamically stable, no acute distress. Patient is in no pain and has tolerated surgery well. Objective - Vital Signs/Intake and Output Vital Signs (last 24 hours): Temp Pulse Resp BP Pulse Ox 97.6 F 115 H 18 124/74 98 12/29/16 09:51 12/29/16 09:51 12/29/16 09:51 12/29/16 09:51 12/29/16 09:51 Physical exam: Constitutional- cooperative, awake, alert. Head- NCAT, PERRL Eye- PERRL, normal accommodation ENT- normal exam, MMM. Neck- normal inspection, supple, no JVD Respiratory- CTAB, no wheezes rales rhonchi Cardiovascular- RRR, +S1, +S2 no MRG GI/Abdominal- normal bowel sounds, soft, no mass, no hsmdressings clean dry and intact Skin- warm, dry Extremities Exam- normal capillary refill, normal inspection Neurological Exam- alert, stable gait Psych- normal mood, normal affect - Medications Medications: Current Medications Acetaminophen (Tylenol 325mg Tab) 650 mg PO Q6 PRN PRN Reason: Fever >100.4 F Last Admin: 12/28/16 23:40 Dose: 650 mg Famotidine (Pepcid) 40 mg PO HS [facility] Last Admin: 12/28/16 21:45 Dose: 40 mg Hydromorphone HCl (Dilaudid) 0.5 mg IVP Q3 PRN PRN Reason: Pain, moderate (4-7) Stop: 12/29/16 18:56 Hydromorphone HCl (Dilaudid) 1 mg IVP Q3 PRN PRN Reason: Pain, severe (8-10) Piperacillin Sod/Tazobactam (Sod 3.375 gm/ Sodium Chloride) 100 mls @ 100 mls/ hr IVPB 0000,0600,1200,1800 [facility] PRN Reason: Protocol Last Admin: 12/29/16 05:56 Dose: 100 mls/hr Lactated Ringer's (Lactated Ringer's) 1,000 mls @ 90 mls/hr IV .Q11H7M [facility] Last Admin: 12/29/16 04:29 Dose: 90 mls/hr Lisinopril (Zestril) 5 mg PO DAILY [facility] Last Admin: 12/29/16 08:32 Dose: 5 mg Ondansetron HCl (Zofran Inj) 4 mg IVP Q6 PRN PRN Reason: Nausea/Vomiting Last Admin: 12/29/16 08:20 Dose: 4 mg Pantoprazole Sodium (Protonix Ec Tab) 40 mg PO DAILY [facility] Last Admin: 12/29/16 08:32 Dose: 40 mg - Labs Labs: 12/29/16 05:30 12/29/16 06:30 PT 13.9 Seconds (9.8-13.1) H 12/27/16 16:54 INR 1.2 (0.9-1.2) 12/27/16 16:54 APTT 37.6 Seconds (25.6-37.1) H 12/27/16 16:54 Assessment and Plan - Assessment and Plan (Free Text) Plan: 46-year-old male with past medical history of hypertension and GERD, presents with a 2 day history of ongoing moderate to severe sharp and cramping waxing and waning right upper quadrant and midepigastric pain and bandlike distribution radiating to the back. This is associated with some nausea and very mild scleral icterus which prompted the patient to come to the emergency room today. In the emergency room patient temperature was 98 blood pressure 122 /78 heart rate 84 respiratory 14 O2 sat 100% on room air. Labs were significant for total bili 1.8, AST 19 ALT 350 alkaline phosphatase 147, PT 13.9 PTT 37.6. Abdominal ultrasound showed mild gallbladder wall thickening with her cholecystic edema with negative ultrasound sonographic Wallis sign. Common bile duct measured 5 mm. GI and surgery were both consulted in the emergency room. Patient to remain nothing by mouth on D5 half-normal saline at 125 miles an hour. However we will continue by mouth medications until after midnight in case of any procedures. Zofran when necessary nausea. He was also given 1 dose of Zosyn in the emergency room. Patient is afebrile with no leukocytosis. Hemodynamically stable, no acute distress. ABDOMINAL PAIN presented with moderate to severe midepigastric / RUQ pain radiating to back. mild scleral icterus around the bottom of eye. AFEBRILE, NO WBC total bili 1.8, AST 19 ALT 350 alkaline phosphatase 147. lipase negative. On admission Abdominal ultrasound showed mild gallbladder wall thickening with her cholecystic edema with negative ultrasound sonographic Wallis sign. Common bile duct measured 5 mm. GI and surgery were both consulted in the emergency room. Patient is currently status post lap scopic cholecystectomy with Intra-Op cholangiogram. the patient is doing well this morning however has a white count of 19,000 we will observe the patient for another day. HD stable GERD continue PPI and H2 blockade HTN continue Lisinopril 5 mg po daily VTE ppx patient ambultes
[2016-12-29 11:07] LABS: NEUTROPHIL 89 % (42-75); TOTAL CELLS COUNTED 100
[2016-12-29] MEDS ORDERED: Sodium Chloride 0.9% 1,000 ML IV SCH (15:45)
[2016-12-29] MEDS ORDERED: Sodium Chloride 0.9% 50 ML IV ONE (19:04)
[2016-12-29] MEDS ORDERED: Iodixanol 320 MG/ML 100 ML BOTTLE IV ONE (19:04)
--- NOTE | 2016-12-29 20:21 | CT ---
EXAM: CT Angiography Chest With Intravenous Contrast CLINICAL HISTORY: 46 years old, male; Signs and symptoms; Shortness of breath; Prior surgery; Surgery date: Post-operative (0-2 days); Surgery type: Cholecystectomy yesterday; Patient HX: HTN dm cad gerd; Additional info: Rule out pe TECHNIQUE: Axial computed tomographic angiography images of the chest with intravenous contrast using pulmonary embolism protocol. All CT scans at this facility use one or more dose reduction techniques, viz.: automated exposure control; ma/kV adjustment per patient size (including targeted exams where dose is matched to indication; i.e. head); or iterative reconstruction technique. MIP reconstructed images were created and reviewed. Coronal and sagittal reformatted images were created and reviewed. CONTRAST: 98 mL of VISIPAQUE administered intravenously. COMPARISON: No relevant prior studies available. FINDINGS: Limitations: Motion artifact - mild. Pulmonary arteries: No definite pulmonary embolism. Aorta: No aneurysm. No dissection. Lungs: Mild atelectasis/scarring. No consolidation. Pleural space: No significant effusion. No pneumothorax. Heart: No cardiomegaly. No significant pericardial effusion. Bones/joints: Mild degenerative changes of spine. No acute fracture. Soft tissues: Small amount of air within anterior abdominal wall. Lymph nodes: No pathologically enlarged lymph nodes. Gallbladder and bile ducts: Cholecystectomy. Intraperitoneal space: Scattered foci of extraluminal air within upper abdomen. Moderate free fluid within upper abdomen. IMPRESSION: 1. No definite CT evidence of pulmonary embolism. 2. Pneumoperitoneum, likely related to recent surgery. 3. Moderate free fluid within upper abdomen. 4. Incidental/non-acute findings are described above.
--- NOTE | 2016-12-29 20:49 | OP ---
PROCEDURE DATE: PREOPERATIVE DIAGNOSES: [id number] cholecystitis and lithiasis. POSTOPERATIVE DIAGNOSES: [id number] cholecystitis and lithiasis. PROCEDURE: Laparoscopic cholecystectomy and intraoperative cholangiogram. SURGEON: Quinn Arambula MD MORTGAGE CLERK: Dr. Jack Sabillon. DESCRIPTION OF PROCEDURE: In the operating room, the patient was identified by name, name of procedure, laterality, my jack, the consent, his name, number, wristband, and birthday. After the chlorhexidine was allowed to dry for 3 minutes, the abdomen having been prepped and draped, was entered with a Veress needle followed by the Visiport and the operation proceeded nicely. A xiphoid 5 and 2 lateral 5s were placed. We were unable to aspirate much from the gallbladder, which was very firm with stone. Eventually, the fundus and the infundibulum were drawn up using a tooth Prestige clamp. The peritoneum over the distal structures were pulled down nicely exposing very quickly the cystic duct. Cystic artery was a little bit more difficult to find; however, it was eventually circumscribed nicely. The peritoneum being swept down, a normal size cystic duct was identified. The view of safety was achieved where a clamp could easily go behind both the cystic duct and the cystic artery without intervening structures, identifying liver behind very nicely. Having done this, a clip was placed on the gallbladder side. The cystic duct was opened and cholangiogram obtained. It showed a normal size common duct with flow easily going to the duodenum and left and right hepatic ducts without stones seen. It is a little bit dilated distally, but certainly nothing that I could see were remained. Under direct vision, the cystic duct and then the cystic artery were doubly clipped and divided, and the gallbladder taken off using the liver bed without entering it. Gallbladder was placed in a bag and removed by cutting the fascia on either side, and then eventually opening top of the gallbladder, removing numerous very small bilirubin stones. The liver bed was examined and there was a little bit of bleeding that flushed nicely without much residual bleeding or bile. As this was dried nicely, the umbilicus was closed with mattress stitches of #1 Novafil and mattress stopping the bleeding nicely. The abdomen was reexplored. There was nothing untoward. No bleeding, no bile and nothing. The associated structures were normal. Catheters were removed. The trocar was removed. The abdomen then closed under direct vision and followed with Vicryl, PDS, and Dermabond. The patient was taken to recovery room in good condition after the sponge and needle counts were declared correct. Quinn Arambula MD
[2016-12-30] MEDS: Piperacillin/Tazobact 3.375 GM in Sodium Chloride 0.9% 100 ML IVPB SCH ×5 (00:01→17:21)
[2016-12-30 06:59] LABS: BASO % 0.2 % (0.0-2.0); EOS # 0.1 K/uL (0.0-0.7); EOS % 0.5 % (0.0-4.0); HEMATOCRIT 24.2 % (35.0-51.0); LYMPH # 4.1 K/uL (1.0-4.3); LYMPH % 22.2 % (20.0-40.0); MEAN CELL VOLUME 88.8 fl (80.0-94.0); MEAN CORPUSCULAR HEMOGLOBIN 29.8 pg (27.0-31.0); MEAN CORPUSCULAR HGB CONC 33.6 g/dL (33.0-37.0); MONO # 1.5 K/uL (0.0-0.8); MONO % 8.1 % (0.0-10.0); NEUT # 12.7 K/uL (1.8-7.0); RED CELL DISTRIBUTION WIDTH 13.2 % (11.5-14.5); WHITE BLOOD COUNT 18.5 K/uL (4.8-10.8)
[2016-12-30 07:10] LABS: ALB/GLOB RATIO 1.3 (1.0-2.1); ALKALINE PHOSPHATASE 65 U/L (38-126); ALT/SGPT 123 U/L (21-72); AST/SGOT 32 U/L (17-59); BILIRUBIN,TOTAL 0.7 mg/dl (0.2-1.3); BLOOD UREA NITROGEN 12 mg/dl (9-20); CARBON DIOXIDE 29 mmol/L (22-30); CHLORIDE 103 mmol/L (98-107); GFR AFRICAN-AMERICAN > 60; GLUCOSE,RANDOM 103 mg/dL (75-110); POTASSIUM 3.8 MMOL/L (3.6-5.0); SODIUM 138 mmol/l (132-148); TOTAL PROTEIN 5.6 G/DL (6.3-8.2)
[2016-12-30] MEDS ORDERED: Sodium Chloride 0.9% 1,000 ML IV SCH (07:45)
[2016-12-30] MEDS: Pantoprazole 40 mg EC Tab PO SCH (08:28)
[2016-12-30] MEDS ORDERED: Sodium Chloride 0.9% 1,000 ML IV ONE (08:30)
--- NOTE | 2016-12-30 08:43 | CP.PCM.PN ---
Subjective - Date & Time of Evaluation Date of Evaluation: 12/30/16 Time of Evaluation: 07:45 - Subjective Subjective: General Surgery Pt S&E, tachycardic to 130s-140s overnight. Chest CT negative for PE. Reports he fell the night after surgery due to dizziness. Denies any anemic symptoms at this time. No abdominal pain. Objective - Vital Signs/Intake and Output Vital Signs (last 24 hours): Temp Pulse Resp BP Pulse Ox 98.7 F 106 H 18 113/64 99 12/30/16 07:57 12/30/16 08:29 12/30/16 07:57 12/30/16 08:29 12/30/16 07:57 Intake and Output: 12/30/16 12/30/16 06:59 18:59 Intake Total 1400 Output Total 3 Balance 1397 - Medications Medications: Current Medications Acetaminophen (Tylenol 325mg Tab) 650 mg PO Q6 PRN PRN Reason: Fever >100.4 F Last Admin: 12/29/16 20:59 Dose: 650 mg Famotidine (Pepcid) 40 mg PO HS [facility] Last Admin: 12/29/16 22:50 Dose: 40 mg Hydromorphone HCl (Dilaudid) 1 mg IVP Q3 PRN PRN Reason: Pain, severe (8-10) Piperacillin Sod/Tazobactam (Sod 3.375 gm/ Sodium Chloride) 100 mls @ 100 mls/ hr IVPB 0000,0600,1200,1800 [facility] PRN Reason: Protocol Last Admin: 12/30/16 06:14 Dose: 100 mls/hr Lactated Ringer's (Lactated Ringer's) 1,000 mls @ 90 mls/hr IV .Q11H7M [facility] Last Admin: 12/29/16 17:57 Dose: 90 mls/hr Sodium Chloride (Sodium Chloride 0.9%) 1,000 mls @ 999 mls/hr IV .Q1H1M [facility] Stop: 12/31/16 07:32 Sodium Chloride (Sodium Chloride 0.9%) 1,000 mls @ 1,000 mls/hr IV ONCE ONE Stop: 12/30/16 09:29 Last Admin: 12/30/16 08:21 Dose: 1,000 mls/hr Lisinopril (Zestril) 5 mg PO DAILY [facility] Last Admin: 12/30/16 08:29 Dose: 5 mg Ondansetron HCl (Zofran Inj) 4 mg IVP Q6 PRN PRN Reason: Nausea/Vomiting Last Admin: 12/29/16 08:20 Dose: 4 mg Pantoprazole Sodium (Protonix Ec Tab) 40 mg PO DAILY [facility] Last Admin: 12/30/16 08:28 Dose: 40 mg - Labs Labs: 12/30/16 05:30 12/30/16 05:30 PT 13.9 Seconds (9.8-13.1) H 12/27/16 16:54 INR 1.2 (0.9-1.2) 12/27/16 16:54 APTT 37.6 Seconds (25.6-37.1) H 12/27/16 16:54 - Constitutional Appears: Non-toxic, No Acute Distress - Head Exam Head Exam: ATRAUMATIC, NORMOCEPHALIC - Eye Exam Eye Exam: EOMI. absent: Scleral icterus - Respiratory Exam Respiratory Exam: NORMAL BREATHING PATTERN. absent: Respiratory Distress - Cardiovascular Exam Cardiovascular Exam: Tachycardia, +S1, +S2 - GI/Abdominal Exam GI & Abdominal Exam: Soft. absent: Distended, Guarding, Tenderness Additional comments: incisions C/D/I - Neurological Exam Neurological Exam: Alert, Awake - Skin Skin Exam: Dry, Warm Assessment and Plan - Assessment and Plan (Free Text) Assessment: 46M POD#2 s/p lap cholecystectomy Plan: NPO Transfuse 1 PRBC, recheck Hgb after transfusion complete [address] abd/pelvis with IV contrast to assess for active bleeding Ok to transfer to Med/Surg floor Continue to Monitor hemodynamics and Hgb Notify surgery team if pt becomes unstable. D/W Dr. Arambula and Dr. Seth Redd PGY4
[2016-12-30] MEDS: Lactated Ringer's 1,000 ML IV SCH (10:30)
--- NOTE | 2016-12-30 10:33 | CP.PCM.PN ---
Subjective - Date & Time of Evaluation Date of Evaluation: 12/30/16 Time of Evaluation: 11:06 - Subjective Subjective: patient seen and examined at bedside status post arthroscopic cholecystectomy 2 days ago. Overnight patient became tachycardic in the 130s to 140s chest CTA was negative for PE. Upon evaluation of labs this morning patient hemoglobin and hematocrit dropped approximate 4 g. discussed with surgery team will obtain a CTA today and transfuse 1 unit PRBC. Patient is currently hemodynamically stable and in no acute distress. Objective - Vital Signs/Intake and Output Vital Signs (last 24 hours): Temp Pulse Resp BP Pulse Ox 98.7 F 106 H 18 113/64 99 12/30/16 07:57 12/30/16 08:29 12/30/16 07:57 12/30/16 08:29 12/30/16 07:57 Physical exam: Constitutional- cooperative, awake, alert. Head- NCAT, PERRL Eye- PERRL, normal accommodation ENT- normal exam, MMM. Neck- normal inspection, supple, no JVD Respiratory- CTAB, no wheezes rales rhonchi Cardiovascular- RRR, +S1, +S2 no MRG GI/Abdominal- normal bowel sounds, soft, no mass, no hsm ddressings clean dry and intact Skin- warm, dry Extremities Exam- normal capillary refill, normal inspection Neurological Exam- alert, stable gait Psych- normal mood, normal affect Intake and Output: 12/30/16 12/30/16 06:59 18:59 Intake Total 1400 1340 Output Total 3 Balance 1397 1340 - Medications Medications: Current Medications Acetaminophen (Tylenol 325mg Tab) 650 mg PO Q6 PRN PRN Reason: Fever >100.4 F Last Admin: 12/29/16 20:59 Dose: 650 mg Famotidine (Pepcid) 40 mg PO HS [facility] Last Admin: 12/29/16 22:50 Dose: 40 mg Hydromorphone HCl (Dilaudid) 1 mg IVP Q3 PRN PRN Reason: Pain, severe (8-10) Piperacillin Sod/Tazobactam (Sod 3.375 gm/ Sodium Chloride) 100 mls @ 100 mls/ hr IVPB 0000,0600,1200,1800 [facility] PRN Reason: Protocol Last Admin: 12/30/16 06:14 Dose: 100 mls/hr Lactated Ringer's (Lactated Ringer's) 1,000 mls @ 90 mls/hr IV .Q11H7M [facility] Last Admin: 12/30/16 10:30 Dose: 90 mls/hr Sodium Chloride (Sodium Chloride 0.9%) 1,000 mls @ 999 mls/hr IV .Q1H1M [facility] Stop: 12/31/16 07:32 Lisinopril (Zestril) 5 mg PO DAILY [facility] Last Admin: 12/30/16 08:29 Dose: 5 mg Ondansetron HCl (Zofran Inj) 4 mg IVP Q6 PRN PRN Reason: Nausea/Vomiting Last Admin: 12/29/16 08:20 Dose: 4 mg Pantoprazole Sodium (Protonix Ec Tab) 40 mg PO DAILY [facility] Last Admin: 12/30/16 08:28 Dose: 40 mg - Labs Labs: 12/30/16 05:30 12/30/16 05:30 PT 13.9 Seconds (9.8-13.1) H 12/27/16 16:54 INR 1.2 (0.9-1.2) 12/27/16 16:54 APTT 37.6 Seconds (25.6-37.1) H 12/27/16 16:54 Assessment and Plan - Assessment and Plan (Free Text) Plan: 46-year-old male with past medical history of hypertension and GERD, presents with a 2 day history of ongoing moderate to severe sharp and cramping waxing and waning right upper quadrant and midepigastric pain and bandlike distribution radiating to the back. This is associated with some nausea and very mild scleral icterus which prompted the patient to come to the emergency room today. In the emergency room patient temperature was 98 blood pressure 122 /78 heart rate 84 respiratory 14 O2 sat 100% on room air. Labs were significant for total bili 1.8, AST 19 ALT 350 alkaline phosphatase 147, PT 13.9 PTT 37.6. Abdominal ultrasound showed mild gallbladder wall thickening with her cholecystic edema with negative ultrasound sonographic Wallis sign. Common bile duct measured 5 mm. GI and surgery were both consulted in the emergency room. Patient to remain nothing by mouth on D5 half-normal saline at 125 miles an hour. However we will continue by mouth medications until after midnight in case of any procedures. Zofran when necessary nausea. He was also given 1 dose of Zosyn in the emergency room. patient is status post laparoscopic cholecystectomy. About 2 days after surgery patient became tachycardic however normal blood pressures. CT was negative for PE. CTA pending today. 1 unit PRBC today. Cholecystitis presented with moderate to severe midepigastric / RUQ pain radiating to back. mild scleral icterus around the bottom of eye. AFEBRILE, NO WBC total bili 1.8, AST 19 ALT 350 alkaline phosphatase 147. lipase negative. On admission Abdominal ultrasound showed mild gallbladder wall thickening with her cholecystic edema with negative ultrasound sonographic Wallis sign. Common bile duct measured 5 mm. GI and surgery were both consulted in the emergency room. Patient is currently status post lap scopic cholecystectomy with Intra-Op cholangiogram. overnight patient became tachycardic in the 130s to 140s.CTA negative for PE. We will obtain a CTA abdomen to evaluate postoperatively. HD stable anemia secondary to blood loss Hemoglobin and hematocrit on admission 15.2/45., postop day 1 12/36.8. Today 8.1 /24.2 we will transfuse 1 unit PRBC Patient is hemodynamically stable. tachycardia resolved after 1 L of fluids. GERD continue PPI and H2 blockade HTN continue Lisinopril 5 mg po daily VTE ppx patient ambultes
[2016-12-30] MEDS ORDERED: Iodixanol 320 MG/ML 100 ML BOTTLE IV ONE (11:20)
--- NOTE | 2016-12-30 14:16 | CT ---
PROCEDURE: CT abdomen pelvis dated 12/30/2016. HISTORY: Possible postoperative bleeding. COMPARISON: Correlation made with CT scan chest 12/29/2016 which image the upper abdomen TECHNIQUE: Contiguous axial images of the abdomen and pelvis. Oral contrast was administered. No IV contrast given. Coronal and Sagittal reformats generated. This CT exam was performed using one or more of the following dose reduction techniques: Automated exposure control, adjustment of the mA and/or kV according to patient size, and/or use of iterative reconstruction technique. Contrast dose: 98 cc Visipaque 320 contrast Radiation dose: Total exam DLP = 1233.51 mGy-cm. FINDINGS: LOWER THORAX: Mild bibasilar atelectasis with tiny effusions. . Heart size is within range of normal. No significant pericardial effusion. There is a small hiatal hernia. . LIVER: Liver is borderline/mildly enlarged measuring approximately 18 cm in CC dimension. Mild diffuse fatty hepatic infiltration. No definitive hepatic mass or collection. Portal and splenic veins are opacified. GALLBLADDER AND BILE DUCTS: Gallbladder has been surgically resected with metallic clips in the gallbladder fossa again seen. . PANCREAS: The pancreas appears slightly atrophic and fatty replaced without masses collections or calcifications. SPLEEN: There are multiple low-attenuation foci seen scattered throughout the splenic parenchyma of uncertain etiology. Rule out small hepatic cysts or hemangiomas. Possibility of small infarcts/ -septic emboli cannot be excluded. Clinical correlation recommended. ADRENALS: There are no adrenal masses. KIDNEYS AND URETERS: Kidneys demonstrate symmetric nephrograms. No evidence of nephrolithiasis or hydronephrosis. BLADDER: The urinary bladder is physiologically distended. No evidence of intraluminal urinary bladder calculi. REPRODUCTIVE: Prostate gland measures approximately johnson 3.7 cm. There appears to be some mild central prostatic microcalcification. APPENDIX: Normal-appearing appendix best seen on coronal image number [id number]. No periappendiceal inflammatory changes seen to suggest acute appendicitis. . BOWEL: Evaluation of the bowel is limited due to the lack of oral contrast material. Stomach is incompletely distended with debris liquid and air. Visualized loops of small bowel exhibit normal contour and caliber. No evidence of acute mechanical small bowel obstruction. Stool and air seen throughout the large bowel. There may be an occasional colonic diverticula along the distal descending/sigmoid colon. PERITONEUM: There is a moderately large amount of free fluid within the intraperitoneal fluid extending from the upper abdomen into the pelvis with Hounsfield units ranging from low 40s through the low 60s consistent with proteinaceous fluid likely representing hemorrhage admixed with ascites. There is a small amount of free intraperitoneal air also seen in the upper anterior abdomen likely felt to be related to recent cholecystectomy. Small fat containing bilateral inguinal hernias are present which extend at inferiorly into the upper scrotal region. LYMPH NODES: no significant bulky abdominal adenopathy VASCULATURE: No evidence of abdominal aortic or iliac artery aneurysm. BONES: Mild multilevel degenerative spondylosis of the lower thoracic and lumbar spine. OTHER FINDINGS: There is a large crescentic shaped -curvilinear subcutaneous intermuscular hematoma right lateral abdominal wall associated with a small amount of subcutaneous emphysema IMPRESSION: There is a large amount of intraperitoneal fluid with proteinaceous content likely representing some combination of hemorrhage and ascites. Small amount of free air is also present likely postoperative. Status post cholecystectomy. Borderline/mild hepatomegaly. . There are multiple low-attenuation foci scattered throughout the splenic parenchyma of uncertain etiology. Rule out small cysts hemangiomas or possibly a small septic emboli . Tiny bilateral effusions and minimal bibasilar atelectasis. . There is a large crescentic shaped intermuscular hematoma right lateral wall of the abdomen associated with small amount of subcutaneous emphysema Findings discussed with Dr. Ann at approximately 2 p.m. with written down and read back verification.
[2016-12-30 17:19] LABS: HEMATOCRIT 26.8 % (35.0-51.0); MEAN CELL VOLUME 88.4 fl (80.0-94.0); MEAN CORPUSCULAR HEMOGLOBIN 28.6 pg (27.0-31.0); MEAN CORPUSCULAR HGB CONC 32.4 g/dL (33.0-37.0)
--- NOTE | 2016-12-30 21:15 | CARD ---
APPROVED REPORT EKG Measurement Heart [id number] UT [id number] <Conclusion> Sinus tachycardia Otherwise normal ECG
[2016-12-31 00:02] VITALS: O2SAT 98
[2016-12-31] MEDS: Lactated Ringer's 1,000 ML IV SCH (03:04)
[2016-12-31] MEDS: Piperacillin/Tazobact 3.375 GM in Sodium Chloride 0.9% 100 ML IVPB SCH (03:05)
[2016-12-31 04:39] VITALS: RESP 20
[2016-12-31 04:40] VITALS: PULSE 82; TEMP 98.5
[2016-12-31 06:59] LABS: ALB/GLOB RATIO 1.3 (1.0-2.1); ALKALINE PHOSPHATASE 64 U/L (38-126); ALT/SGPT 101 U/L (21-72); AST/SGOT 30 U/L (17-59); BILIRUBIN,TOTAL 1.3 mg/dl (0.2-1.3); BLOOD UREA NITROGEN 10 mg/dl (9-20); CALCIUM 8.5 mg/dL (8.4-10.2); CARBON DIOXIDE 25 mmol/L (22-30); CHLORIDE 104 mmol/L (98-107); GFR AFRICAN-AMERICAN > 60; GLUCOSE,RANDOM 87 mg/dL (75-110); SODIUM 137 mmol/l (132-148)
[2016-12-31 07:23] LABS: POTASSIUM 4.3 MMOL/L (3.6-5.0)
[2016-12-31 08:19] LABS: BASO % 0.3 % (0.0-2.0); EOS # 0.2 K/uL (0.0-0.7); EOS % 1.6 % (0.0-4.0); HEMATOCRIT 30.9 % (35.0-51.0); LYMPH # 2.5 K/uL (1.0-4.3); LYMPH % 19.6 % (20.0-40.0); MEAN CORPUSCULAR HEMOGLOBIN 29.7 pg (27.0-31.0); MEAN CORPUSCULAR HGB CONC 34.6 g/dL (33.0-37.0); MEAN PLATELET VOLUME 7.8 fl (7.2-11.7); MONO # 0.9 K/uL (0.0-0.8); MONO % 6.9 % (0.0-10.0); NEUT % 71.6 % (50.0-75.0); WHITE BLOOD COUNT 12.6 K/uL (4.8-10.8)
[2016-12-31] MEDS ORDERED: Piperacillin/Tazobact 3.375 GM in Sodium Chloride 0.9% 100 ML IVPB SCH (09:00)
[2016-12-31] MEDS: Pantoprazole 40 mg EC Tab PO SCH (09:16)
[2016-12-31 09:20] VITALS: BP 120/67
--- NOTE | 2016-12-31 10:53 | CP.PCM.PN ---
Subjective - Date & Time of Evaluation Date of Evaluation: 12/31/16 Time of Evaluation: 10:43 - Subjective Subjective: Gen Sx: Dr Arambula Pt S&E. NAEO. HgB increased appropriately to transfusion. No longer weak or dizzy. Tolerating diet and feeling well. Pain well controlled. Objective - Vital Signs/Intake and Output Vital Signs (last 24 hours): Temp Pulse Resp BP Pulse Ox 98.5 F 82 20 120/67 98 12/31/16 04:00 12/31/16 09:16 12/31/16 04:00 12/31/16 09:16 12/31/16 02:00 - Medications Medications: Current Medications Acetaminophen (Tylenol 325mg Tab) 650 mg PO Q6 PRN PRN Reason: Fever >100.4 F Last Admin: 12/29/16 20:59 Dose: 650 mg Famotidine (Pepcid) 40 mg PO HS [facility] Last Admin: 12/30/16 21:37 Dose: Not Given Hydromorphone HCl (Dilaudid) 1 mg IVP Q3 PRN PRN Reason: Pain, severe (8-10) Lactated Ringer's (Lactated Ringer's) 1,000 mls @ 90 mls/hr IV .Q11H7M [facility] Last Admin: 12/31/16 03:04 Dose: 90 mls/hr Piperacillin Sod/Tazobactam (Sod 3.375 gm/ Sodium Chloride) 100 mls @ 100 mls/ hr IVPB 0300,0900,1500,2100 [facility] PRN Reason: Protocol Last Admin: 12/31/16 09:15 Dose: 100 mls/hr Lisinopril (Zestril) 5 mg PO DAILY [facility] Last Admin: 12/31/16 09:16 Dose: 5 mg Ondansetron HCl (Zofran Inj) 4 mg IVP Q6 PRN PRN Reason: Nausea/Vomiting Last Admin: 12/29/16 08:20 Dose: 4 mg Pantoprazole Sodium (Protonix Ec Tab) 40 mg PO DAILY [facility] Last Admin: 12/31/16 09:16 Dose: 40 mg - Labs Labs: 12/31/16 07:45 12/31/16 06:00 PT 13.9 Seconds (9.8-13.1) H 12/27/16 16:54 INR 1.2 (0.9-1.2) 12/27/16 16:54 APTT 37.6 Seconds (25.6-37.1) H 12/27/16 16:54 - Constitutional Appears: Non-toxic, No Acute Distress - ENT Exam ENT Exam: Mucous Membranes Moist - Respiratory Exam Respiratory Exam: absent: Accessory Muscle Use, Respiratory Distress - Cardiovascular Exam Cardiovascular Exam: REGULAR RHYTHM. absent: Tachycardia - GI/Abdominal Exam GI & Abdominal Exam: Distended, Soft, Tenderness (post-op and appropriate). absent: Firm, Guarding, Rigid - Neurological Exam Neurological Exam: Alert, Awake, Oriented x3 - Psychiatric Exam Psychiatric exam: Normal Affect, Normal Mood - Skin Skin Exam: Normal Color, Warm Assessment and Plan - Assessment and Plan (Free Text) Assessment: 46M s/p laparoscopic cholecystectomy Plan: HgB stable resume regular diet pt clear for discharge, will get outpatient CBC saturday and follow up in clinic saturday d/w Dr Ralf Gamez, PGY3
--- NOTE | 2016-12-31 11:29 | CP.PCM.DIS ---
<Mekhi Castro - Last Filed: 12/31/16 15:15> Provider - Provider Date of Admission: 12/27/16 17:49 Attending physician: Candace Ann DO Consults: General surgery Time Spent in preparation of Discharge (in minutes): 15 Hospital Course - Lab Results Lab Results: Micro Results 12/27/16 19:10 Blood-Venous Blood Culture - Preliminary NO GROWTH AFTER 3 DAYS 12/27/16 19:10 Blood-Venous Blood Culture - Preliminary NO GROWTH AFTER 3 DAYS Most Recent Lab Values WBC 12.6 K/uL (4.8-10.8) H 12/31/16 07:45 RBC 3.60 Mil/uL (4.40-5.90) L 12/31/16 07:45 Hgb 10.7 g/dL (12.0-18.0) L D 12/31/16 07:45 Hct 30.9 % (35.0-51.0) L 12/31/16 07:45 MCV 86.0 fl (80.0-94.0) D 12/31/16 07:45 MCH 29.7 pg (27.0-31.0) 12/31/16 07:45 MCHC 34.6 g/dL (33.0-37.0) 12/31/16 07:45 RDW 14.0 % (11.5-14.5) 12/31/16 07:45 Plt Count 215 K/uL (130-400) 12/31/16 07:45 MPV 7.8 fl (7.2-11.7) 12/31/16 07:45 Neut % (Auto) 71.6 % (50.0-75.0) 12/31/16 07:45 Lymph % (Auto) 19.6 % (20.0-40.0) L 12/31/16 07:45 [place] % (Auto) 6.9 % (0.0-10.0) 12/31/16 07:45 Eos % (Auto) 1.6 % (0.0-4.0) 12/31/16 07:45 Baso % (Auto) 0.3 % (0.0-2.0) 12/31/16 07:45 Neut # 9.0 K/uL (1.8-7.0) H 12/31/16 07:45 Lymph # 2.5 K/uL (1.0-4.3) 12/31/16 07:45 [place] # 0.9 K/uL (0.0-0.8) H 12/31/16 07:45 Eos # 0.2 K/uL (0.0-0.7) 12/31/16 07:45 Baso # 0.0 K/uL (0.0-0.2) 12/31/16 07:45 Neutrophils % (Manual) 89 % (42-75) H 12/29/16 05:30 Lymphocytes % (Manual) 8 % (20-50) L 12/29/16 05:30 Monocytes % (Manual) 3 % (0-10) 12/29/16 05:30 Platelet Estimate Normal (NORMAL) 12/29/16 05:30 RBC Morphology Normal (NORMAL) 12/29/16 05:30 PT 13.9 Seconds (9.8-13.1) H 12/27/16 16:54 INR 1.2 (0.9-1.2) 12/27/16 16:54 APTT 37.6 Seconds (25.6-37.1) H 12/27/16 16:54 Sodium 137 mmol/l (132-148) 12/31/16 06:00 Potassium 4.3 MMOL/L (3.6-5.0) 12/31/16 06:00 Chloride 104 mmol/L (98-107) 12/31/16 06:00 Carbon Dioxide 25 mmol/L (22-30) 12/31/16 06:00 Anion Gap 13 (10-20) 12/31/16 06:00 BUN 10 mg/dl (9-20) 12/31/16 06:00 Creatinine 0.7 mg/dL (0.8-1.5) L 12/31/16 06:00 Est GFR ( Amer) > 60 12/31/16 06:00 Est GFR (Non-Af Amer) > 60 12/31/16 06:00 Random Glucose 87 mg/dL (75-110) 12/31/16 06:00 Calcium 8.5 mg/dL (8.4-10.2) 12/31/16 06:00 Total Bilirubin 1.3 mg/dl (0.2-1.3) 12/31/16 06:00 Direct Bilirubin 0.3 mg/ml (0.0-0.4) 12/30/16 05:30 AST 30 U/L (17-59) 12/31/16 06:00 ALT 101 U/L (21-72) H 12/31/16 06:00 Alkaline Phosphatase 64 U/L (38-126) 12/31/16 06:00 Total Protein 6.0 G/DL (6.3-8.2) L 12/31/16 06:00 Albumin 3.4 g/dL (3.5-5.0) L 12/31/16 06:00 Globulin 2.7 gm/dL (2.2-3.9) 12/31/16 06:00 Albumin/Globulin Ratio 1.3 (1.0-2.1) 12/31/16 06:00 Lipase 76 U/L (23-300) 12/27/16 16:54 Blood Type A NEGATIVE 12/30/16 09:20 Blood Type Confirm A NEGATIVE 12/30/16 09:35 Antibody Screen Negative 12/30/16 09:20 Crossmatch See Detail 12/30/16 09:20 BBK History Checked No verified bt 12/30/16 09:20 - Hospital Course Hospital Course: 46 year old male patient PMHx HTN and GERD presented to [facility] ED on 12/27/16 complaining of moderate/severe sharp cramping waxing/waning RUQ and midepigastric pain with bandlike distribution radiating to the back. Patient also complained of nausea and presented with mild scleral icterus. Abdominal US revealed mild gallbladder wall thickening with cholecystic edema, negative for Wallis's sign. Common bild duct measured 5mm. GI and surgery were consulted, pt remained NPO, and pt was taken to OR 12/28/16 for laparoscopic cholecystectomy with intraoperative cholangiogram. POD#1 s/p laparoscopic cholecystectomy patient white count increased to 19. Overnight 12/30/16 patient became tachycardic in the 130s to 140s and 1L fluid bolus was given thus tachycardia resolved. Chest CTA was negative for PE. Upon evaluation of labs patient hemoglobin and hematocrit dropped approximate 4 g. 3U pRBC total were transfused due to decreasing H/H. Patient was reevaluated by surgery, repeat CT abdomen demonstrated ascites with some hemorrhage. Patient Hgb stabilized post transfusions and is cleared by surgery for discharge home with followup appointment already scheduled. Patient remains hemodynamically stable for discharge home today 12/31/16 and will follow up with Dr. Arambula in surgery clinic this 01/04/17. Patient is to get outpatient CBC on Saturday prior to post-op surgery appointment. Discharge Exam - Head Exam Head Exam: ATRAUMATIC, NORMOCEPHALIC Discharge Plan - Discharge Medications Prescriptions: Lisinopril [Zestril] 5 mg PO DAILY #30 tab Pantoprazole Sodium [Protonix] 40 mg PO DAILY #30 tablet. Ranitidine HCl [Zantac] 300 mg PO HS #30 tablet - Follow Up Plan Condition: FAIR Disposition: HOME/ ROUTINE Patient education suggested?: Yes Instructions: How to Use an Incentive Spirometer (DC), Cholecystitis (DC), Iron Rich Diet (DC), Anemia (DC) Additional Instructions: PATIENT TO FOLLOW UP WITH SURGERY , APPT ALREADY MADE. TO ALSO FOLLOW UP AT [facility]. Need to have CBC on Saturday01/02/17 come to admitting office to register then they will direct you to the lab continue with ZESTRIL 5 mg daily PROTONIC 40 mg daily Zantac 300mg at bedtime every day Seek medical attention if your abdomen becomes distended, increase in pain, vomiting, weakness, dizziness, shortness of breathe, fever or for any other concerns Referrals: [facility] [Provider Group] <Candace Ann - Last Filed: 01/01/17 11:38> Provider - Provider Date of Admission: 12/27/16 17:49 Attending physician: Candace Ann DO Hospital Course - Lab Results Lab Results: Micro Results 12/27/16 19:10 Blood-Venous Blood Culture - Preliminary NO GROWTH AFTER 4 DAYS 12/27/16 19:10 Blood-Venous Blood Culture - Preliminary NO GROWTH AFTER 4 DAYS Most Recent Lab Values WBC 12.6 K/uL (4.8-10.8) H 12/31/16 07:45 RBC 3.60 Mil/uL (4.40-5.90) L 12/31/16 07:45 Hgb 10.7 g/dL (12.0-18.0) L D 12/31/16 07:45 Hct 30.9 % (35.0-51.0) L 12/31/16 07:45 MCV 86.0 fl (80.0-94.0) D 12/31/16 07:45 MCH 29.7 pg (27.0-31.0) 12/31/16 07:45 MCHC 34.6 g/dL (33.0-37.0) 12/31/16 07:45 RDW 14.0 % (11.5-14.5) 12/31/16 07:45 Plt Count 215 K/uL (130-400) 12/31/16 07:45 MPV 7.8 fl (7.2-11.7) 12/31/16 07:45 Neut % (Auto) 71.6 % (50.0-75.0) 12/31/16 07:45 Lymph % (Auto) 19.6 % (20.0-40.0) L 12/31/16 07:45 [place] % (Auto) 6.9 % (0.0-10.0) 12/31/16 07:45 Eos % (Auto) 1.6 % (0.0-4.0) 12/31/16 07:45 Baso % (Auto) 0.3 % (0.0-2.0) 12/31/16 07:45 Neut # 9.0 K/uL (1.8-7.0) H 12/31/16 07:45 Lymph # 2.5 K/uL (1.0-4.3) 12/31/16 07:45 [place] # 0.9 K/uL (0.0-0.8) H 12/31/16 07:45 Eos # 0.2 K/uL (0.0-0.7) 12/31/16 07:45 Baso # 0.0 K/uL (0.0-0.2) 12/31/16 07:45 Neutrophils % (Manual) 89 % (42-75) H 12/29/16 05:30 Lymphocytes % (Manual) 8 % (20-50) L 12/29/16 05:30 Monocytes % (Manual) 3 % (0-10) 12/29/16 05:30 Platelet Estimate Normal (NORMAL) 12/29/16 05:30 RBC Morphology Normal (NORMAL) 12/29/16 05:30 PT 13.9 Seconds (9.8-13.1) H 12/27/16 16:54 INR 1.2 (0.9-1.2) 12/27/16 16:54 APTT 37.6 Seconds (25.6-37.1) H 12/27/16 16:54 Sodium 137 mmol/l (132-148) 12/31/16 06:00 Potassium 4.3 MMOL/L (3.6-5.0) 12/31/16 06:00 Chloride 104 mmol/L (98-107) 12/31/16 06:00 Carbon Dioxide 25 mmol/L (22-30) 12/31/16 06:00 Anion Gap 13 (10-20) 12/31/16 06:00 BUN 10 mg/dl (9-20) 12/31/16 06:00 Creatinine 0.7 mg/dL (0.8-1.5) L 12/31/16 06:00 Est GFR ( Amer) > 60 12/31/16 06:00 Est GFR (Non-Af Amer) > 60 12/31/16 06:00 Random Glucose 87 mg/dL (75-110) 12/31/16 06:00 Calcium 8.5 mg/dL (8.4-10.2) 12/31/16 06:00 Total Bilirubin 1.3 mg/dl (0.2-1.3) 12/31/16 06:00 Direct Bilirubin 0.3 mg/ml (0.0-0.4) 12/30/16 05:30 AST 30 U/L (17-59) 12/31/16 06:00 ALT 101 U/L (21-72) H 12/31/16 06:00 Alkaline Phosphatase 64 U/L (38-126) 12/31/16 06:00 Total Protein 6.0 G/DL (6.3-8.2) L 12/31/16 06:00 Albumin 3.4 g/dL (3.5-5.0) L 12/31/16 06:00 Globulin 2.7 gm/dL (2.2-3.9) 12/31/16 06:00 Albumin/Globulin Ratio 1.3 (1.0-2.1) 12/31/16 06:00 Lipase 76 U/L (23-300) 12/27/16 16:54 Blood Type A NEGATIVE 12/30/16 09:20 Blood Type Confirm A NEGATIVE 12/30/16 09:35 Antibody Screen Negative 12/30/16 09:20 Crossmatch See Detail 12/30/16 09:20 BBK History Checked No verified bt 12/30/16 09:20 Attending/Attestation - Attestation I have personally seen and examined this patient.: Yes I have fully participated in the care of the patient.: Yes I have reviewed all pertinent clinical information, including history, physical exam and plan: Yes Notes (Text): 01/01/17 11:37 Seen, examined, and discussed with Resident Dr. Castro. Agree with findings and plan as above.
--- NOTE | 2017-01-01 14:16 | PQF ANEMIA ---
Dr. Ann blood loss anemia is documented in medical record. After study what is the cause or source? This form is a permanent part of the medical record Clarification of your documentation is requested to better reflect the severity of illness and intensity of treatment of your patient. Indicators present [x] Anemia [x] Drop in H&H from []___ to []___ [] Hypotension [] GI Bleed [x] Transfusion(s) [] Acute bleed other sites [x] Tachycardia [] Surgical Procedure Blood Loss (expected not a complication) Other:[] Location in the medical record that reflects the above clinical findings: [] Treatment Provided: [] PHYSICIAN'S RESPONSE POST OP BLEEDING Based on your medical judgment of the clinical indicators outlined above, are you treating this patient for a known or suspected: [] Acute blood loss anemia [] Chronic blood loss anemia [] Acute on Chronic blood loss anemia [] Anemia due to Surgical procedure blood loss [] Anemia due to chemotherapy or radiation therapy [] Anemia of Chronic Disease, please specify: [] [] Other, please indicate type of anemia []____ [] If Unable to Determine, please check the box, sign and date. Present On Admission (POA) Indicator: [] Present at the time of admission [] Not present at the time of admission [] Clinically Undetermined In responding to this query, please exercise your independent professional judgment. The fact that a question is asked does not imply that any particular answer is desired or expected. Thank you for your clarification on this documentation. If you have any questions please call:[ ] * Thank you, [ ]Lorraine CARREON Coder LAUREL
== END 2016-12-31 14:15 | disposition home or self-care (01) | DRG 418 ==
LOC: H.ER 15:48 → H.ERHOLD 17:49 → H.PEDS 18:56
PROVIDERS: ADMIT Student in an Organized Health Care Education/Training Program; ATTEND Student in an Organized Health Care Education/Training Program
PROC: BF12YZZ Fluoroscopy of Gallbladder using Other Contrast (ICD-10-PCS; 2016-12-28)
PROC: 0FT44ZZ Resection of Gallbladder, Percutaneous Endoscopic Approach (ICD-10-PCS; principal; 2016-12-28 10:00)
PROC: 30233N1 Transfusion of Nonautologous Red Blood Cells into Peripheral Vein, Percutaneous Approach (ICD-10-PCS; 2016-12-30)
DX: K80.12 Calculus of gallbladder with acute and chronic cholecystitis without obstruction (principal); D62 Acute posthemorrhagic anemia; I10 Essential (primary) hypertension; K21.9 Gastro-esophageal reflux disease without esophagitis